=== PATIENT | female | born 1980 | race Caucasian/White ===

== ENCOUNTER 2022-12-24 21:21 | Emergency (ER) | payer OTHER, SELFPAY ==
[2022-12-24 21:46] VITALS: BP 162/106; PULSE 91; RESP 18; TEMP 36.7; O2SAT 98; BMI 54.0
[2022-12-24 22:23] LABS: Basophils Percent Auto 0.3 % (0.2-2.0); Eosinophils Percent Auto 0.3 % (0.9-7.0); Immature Granulocytes Abs Auto 0.04 10^3/uL (0.00-0.03); Immature Granulocytes Pct Auto 0.3 % (0.0-0.5); Lymphocytes Absolute Auto 2.6 10^3/uL (1.2-3.8); Lymphocytes Percent Auto 22.2 % (20.5-60.0); Mean Corpuscular HGB Conc 29.4 g/dL (29.9-35.2); Mean Corpuscular Hemoglobin 27.5 pg (26.7-34.0); Mean Corpuscular Volume 93.4 fL (81.0-99.0); Mean Platelet Volume 9.2 fL (9.5-13.5); Monocytes Absolute Auto 1.1 10^3/uL (0.3-0.8); Monocytes Percent Auto 9.2 % (1.7-12.0); Neutrophils Absolute Auto 7.8 10^3/uL (1.4-6.5); Neutrophils Percent Auto 67.7 % (43.0-75.0); Platelet Count 383 10^3/uL (150-450); Red Blood Count 3.64 10^6/uL (4.20-5.40); Red Cell Distribution Width 16.4 % (11.0-15.0); White Blood Count 11.6 10^3/uL (4.0-11.0)
[2022-12-24 22:35] LABS: Alanine Aminotransferase 35 U/L (14-59); Albumin Globulin Ratio 0.8; Albumin Level 3.3 g/dL (3.4-5.0); Alkaline Phosphatase 107 U/L (46-116); Anion Gap 9.3; Aspartate Amino Transferase 15 U/L (15-37); BUN Creatinine Ratio 10.4; Bilirubin Total 0.4 mg/dL (0.2-1.0); Calcium 9.1 mg/dL (8.5-10.1); Carbon Dioxide 28.7 mmol/L (21.0-32.0); Chloride 106 mmol/L (98-107); Estimated GFR (African America >60 (>=60); Estimated GFR (Non-African Ame 51 (>=60); Globulin 4.2 g/dL; Glucose 100 mg/dL (74-106); Sodium 140 mmol/L (136-145); Total Protein 7.5 g/dL (6.4-8.2)
[2022-12-24 22:36] LABS: INR 0.97; Prothrombin Time 10.3 sec (9.0-11.6)
--- NOTE | 2022-12-24 23:10 | ED.DIZZY1 ---
HPI - Dizziness General Chief Complaint: Dizziness Stated Complaint: General Weakness Time Seen by Provider: 12/24/22 21:58 Source: patient and family Mode of arrival: walk-in History of Present Illness HPI Narrative: patient has past history of CVA 06/2022 felt related to her underlying Rheumatoid arthritis..she is on eliquis bid. She had her IUD removed this year. heavy menstrual 11/30/22. Seen by gynecology requesting an ablation or similar for the bleeding but advised that neurology recommended to avoid anesthesia for a least a year after the CVA. Started bleeding again 4 days ago. states she now feels light headed from bleeding. Has some abdominal cramping MD elicited complaint: Reports lightheadedness Related Data Home Medications Medication Instructions Recorded Confirmed abatacept 125 mg/mL subcutaneous mg subcut 12/24/22 auto-injector (Orencia ClickJect) alprazolam 0.5 mg tablet mg 12/24/22 apixaban 5 mg tablet (Eliquis) mg 12/24/22 betamethasone dipropionate 0.05 % applic topical 12/24/22 topical cream epinephrine 0.3 mg/0.3 mL 12/24/22 injection, auto-injector hydroxychloroquine 200 mg tablet mg PO 12/24/22 levetiracetam 750 mg tablet mg PO 12/24/22 nystatin 100,000 unit/gram topical topical 12/24/22 powder (Nystop) potassium chloride 10 mEq meq PO 12/24/22 tablet,extended release spironolactone 25 mg tablet mg 12/24/22 Allergies Allergy/AdvReac Type Severity Reaction Status Date / Time adalimumab [From Humira] Allergy Severe Anaphylaxis Verified 12/24/22 22:01 codeine Allergy Severe Anaphylaxis Verified 12/24/22 22:01 honey Allergy Severe Anaphylaxis Verified 12/24/22 22:01 sarilumab [From Kevzara] Allergy Severe Anaphylaxis Verified 12/24/22 22:01 shellfish derived Allergy Severe Anaphylaxis Verified 12/24/22 22:01 Beef Containing Products Allergy Intermediate Diarrhea Verified 12/24/22 22:01 soy Allergy Intermediate throat Verified 12/24/22 22:01 swelling Sulfa (Sulfonamide Allergy rash Verified 12/24/22 22:01 Antibiotics) vicodin Allergy Severe Anaphylaxis Uncoded 12/24/22 22:01 bees Allergy Anaphylaxis Uncoded 12/24/22 22:01 Review of Systems ROS Status of ROS 10 or more systems reviewed and unremarkable except as noted in history and below [facility] Social History Smoking status: Never smoker Exam Constitutional Vital Signs, click to edit/add: Last Vital Signs Temp 98.0 F 12/24/22 21:46 Pulse 91 H 12/24/22 21:46 Resp 18 12/24/22 21:46 BP 162/106 H 12/24/22 21:46 Pulse Ox 98 12/24/22 21:46 O2 Del Method Room Air 12/24/22 21:46 Common normals: no apparent distress, average body habitus, oriented x3 and no limitations Eye Common normals: EOMs intact bilaterally and conjunctivae normal Respiratory Common normals: normal respiratory effort, no retractions, no use of accessory muscles and clear to auscultation bilaterally Cardio Common normals: regular rate, regular rhythm, S1 normal heart sound and S2 normal heart sound GI Common normals: Normal to inspection, nondistended, normoactive bowel sounds present, soft to palpation and non-tender Extremity Common normals: normal to inspection and full ROM Neuro Common normals: oriented x3, CN's II-XII intact bilaterally, moves all extremities and no focal motor deficits Psych Appearance: grossly normal Course Vital Signs Vital signs: Vital Signs Temperature 98.0 F 12/24/22 21:46 Pulse Rate 91 H 12/24/22 21:46 Respiratory Rate 18 12/24/22 21:46 Blood Pressure 162/106 H 12/24/22 21:46 Pulse Oximetry 98 12/24/22 21:46 Oxygen Delivery Method Room Air 12/24/22 21:46 Temperature 98.0 F 12/24/22 21:46 Pulse Rate 91 H 12/24/22 21:46 Respiratory Rate 18 12/24/22 21:46 Blood Pressure 162/106 H 12/24/22 21:46 Pulse Oximetry 98 12/24/22 21:46 Oxygen Delivery Method Room Air 12/24/22 21:46 MDM - Dizziness MDM Narrative Medical decision making narrative: patient presents complaining of vaginal bleeding and feeling light headed. Known history of iron deficiency and is scheduled for iron infusion this upcoming tuesday. Iron level is low and she also has mild anemia with Hgb 10. Hydrated in the department and is now feeling better. Advised to follow up with her traveling electrician and keep appointment for iron transfusion Lab Data Labs: Lab Results 12/24/22 Range/Units 22:09 WBC 11.6 H (4.0-11.0) 10^3/uL RBC 3.64 L (4.20-5.40) 10^6/uL Hgb 10.0 L (12.0-16.0) g/dL Hct 34.0 L (36.0-48.0) % MCV 93.4 (81.0-99.0) fL MCH 27.5 (26.7-34.0) pg MCHC 29.4 L (29.9-35.2) g/dL RDW 16.4 H (11.0-15.0) % Plt Count 383 (150-450) 10^3/uL MPV 9.2 L (9.5-13.5) fL Neut % (Auto) 67.7 (43.0-75.0) % Lymph % (Auto) 22.2 (20.5-60.0) % Woods % (Auto) 9.2 (1.7-12.0) % Eos % (Auto) 0.3 L (0.9-7.0) % Baso % (Auto) 0.3 (0.2-2.0) % Neut # (Auto) 7.8 H (1.4-6.5) 10^3/uL Lymph # (Auto) 2.6 (1.2-3.8) 10^3/uL Woods # (Auto) 1.1 H (0.3-0.8) 10^3/uL Eos # (Auto) 0.0 (0.0-0.7) 10^3/uL Baso # (Auto) 0.0 (0.0-0.1) 10^3/uL Abs Immat Gran (auto) 0.04 H (0.00-0.03) 10^3/uL Imm/Tot Granulo (auto) 0.3 (0.0-0.5) % PT 10.3 (9.0-11.6) sec INR 0.97 Sodium 140 (136-145) mmol/L Potassium 4.0 (3.5-5.1) mmol/L Chloride 106 (98-107) mmol/L Carbon Dioxide 28.7 (21.0-32.0) mmol/L Anion Gap 9.3 BUN 12.0 (7.0-18.0) mg/dL Creatinine 1.15 H (0.55-1.02) mg/dL Est GFR ( Amer) >60 (>=60) Est GFR (Non-Af Amer) 51 L (>=60) BUN/Creatinine Ratio 10.4 Glucose 100 (74-106) mg/dL Calcium 9.1 (8.5-10.1) mg/dL Iron 37.0 L (50.0-170.0) ug/dL TIBC 394.0 (250.0-450.0) ug/dL % Saturation 9.4 % Total Bilirubin 0.4 (0.2-1.0) mg/dL AST 15 (15-37) U/L ALT 35 (14-59) U/L Alkaline Phosphatase 107 (46-116) U/L Total Protein 7.5 (6.4-8.2) g/dL Albumin 3.3 L (3.4-5.0) g/dL Globulin 4.2 g/dL Albumin/Globulin Ratio 0.8 Discharge Plan Discharge Chief Complaint: Dizziness Clinical Impression: Anemia, Vaginal bleeding Prescriptions / Home Meds: No Action potassium chloride 10 mEq tablet extended release PO spironolactone 25 mg tablet alprazolam 0.5 mg tablet betamethasone dipropionate 0.05 % cream TOPICAL levetiracetam 750 mg tablet PO nystatin [Nystop] 100,000 unit/gram powder TOPICAL hydroxychloroquine 200 mg tablet PO epinephrine 0.3 mg/0.3 mL auto-injector Eliquis 5 mg tablet Orencia ClickJect 125 mg/mL auto-injector SUBCUT Instructions: Menorrhagia (ED), Anemia (ED) Additional Instructions: follow up with your traveling electrician and for your scheduled iron infusion Stand Alone Forms: Portal Instructions Referrals: JORDY PATTON [Primary Care Provider] - 1 week
[2022-12-24 23:34] LABS: Percent Iron Saturation 9.4 %
[2022-12-25] MEDS: 0.9 % SODIUM CHLORIDE 1,000 ML 999 ML IV (00:04)
== END 2022-12-25 01:56 | disposition home or self-care (01) ==
PROVIDERS: Physician Assistant; Emergency Provider Internal Medicine; PCP Family Medicine
DX: D50.9 Iron deficiency anemia, unspecified (principal); N93.9 Abnormal uterine and vaginal bleeding, unspecified; Z86.73 Personal history of transient ischemic attack (TIA), and cerebral infarction without residual deficits; Z79.01 Long term (current) use of anticoagulants; Z79.899 Other long term (current) drug therapy
CPT/HCPCS: 36415; 80053; 83540; 83550; 85025; 85610; 99284